=== PATIENT | female | born 1940 | race Caucasian/White ===

== ENCOUNTER → 2016-07-08 | Outpatient (CLI) | payer OTHER, BC ==
--- NOTE | 2016-07-11 10:08 | DI ---
BILATERAL SCREENING FULL FIELD DIGITAL MAMMOGRAMS, 07/08/2016 10:29 AM: Clinical History: Screening. Family history of breast cancer in 2 sisters. Previous Exam: None at this facility. The patient indicated that she has had a prior mammogram in peri tely 2011 from [place], [place]. We have requested the donald or study. A supplemental report will be issued upon receipt of that prior exam. Routine mediolateral oblique and craniocaudal views of each breast are obtained. Breast tissue densit y is rated as heterogenously dense. There are no masses. There are no abnormal calcifications. Skin c ontours, nipples, and lower axillary regions are normal. These mammograms were evaluated and reviewed with CAD software. Follow Up: Optionally every 1-2 years. BIRADS: 1. Negative exam. Reading: Negative.
== END ==
LOC: MAMMO 10:23
PROVIDERS: ATTEND Physician Assistant Medical
DX: Z12.31 Encounter for screening mammogram for malignant neoplasm of breast (principal); Z80.3 Family history of malignant neoplasm of breast
CPT/HCPCS: G0202